=== PATIENT | male | born 1980 | race Hispanic/Latino ===

== ENCOUNTER 2019-03-03 00:13 | Emergency (ER) | payer OTHER ==
[2019-03-03] MEDS ORDERED: Ondansetron ODT 4 MG TAB ONE (00:35)
[2019-03-03] MEDS ORDERED: Aspirin Chewable 81 MG TAB ONE (00:35)
[2019-03-03 00:47] LABS: Eosinophils 2 % (0-10); Hemoglobin 15.6 g/dL (14.0-18.0); Lymphocytes 39 % (21-51); MDiff Complete? YES; Mean Corpuscular HGB CONC 34.4 g/dL (32.0-36.0); Mean Corpuscular Hemoglobin 29.1 pg (27.0-31.0); Mean Corpuscular Volume 84.6 fL (78.0-98.0); Mean Platelet Volume 7.5 fL (7.4-10.4); Monocytes 6 % (0-10); Neutrophil 42 % (42-75); Platelet Count 282 thou/uL (130-400); Reactive Lymphocytes 11 % (0-10); Red Blood Cell (RBC) Count 5.35 mill/uL (4.70-6.10); White Blood Cell (WBC) Count 8.1 thou/uL (4.8-10.8)
[2019-03-03 00:51] LABS: ALT (SGPT) 42 U/L (8-55); AST (SGOT) 23 U/L (5-34); Albumin 4.4 g/dL (3.5-5.0); Alkaline Phosphatase 81 U/L (40-150); Anion Gap 14 mmol/L (10-20); BUN (Urea Nitrogen) 16 mg/dL (8.9-20.6); Bilirubin, Total 0.4 mg/dL (0.2-1.2); CK (CPK) 65 U/L (30-200); Calc. Creatinine Clearance 0 mL/min (70-130); Calcium 9.7 mg/dL (7.8-10.44); Carbon Dioxide 23 mmol/L (22-29); Chloride 105 mmol/L (98-107); Estimated GFR-MDRD 77; Glucose 108 mg/dL (70-105); Potassium 3.8 mmol/L (3.5-5.1); Protein, Total 7.4 g/dL (6.0-8.3); Sodium 138 mmol/L (136-145)
--- NOTE | 2019-03-03 07:38 | RAD ---
FXR Chest 1 View Portable History: [Left-sided chest pain] Comparison: None. Findings: The lungs are clear. No pneumothorax or effusion. Cardiac silhouette and mediastinal contou rs are within normal limits. Impression: No acute intrathoracic abnormality.
== END 2019-03-03 01:13 | disposition home or self-care (01) ==
LOC: SCSER 00:13
DX: R07.9 Chest pain, unspecified (principal); E78.00 Pure hypercholesterolemia, unspecified
CPT/HCPCS: 71045; 80053; 82550; 84484; 85025; 93005; Q0162

== ENCOUNTER 2019-03-06 08:38 | Outpatient (CLI) | payer OTHER ==
[2019-03-06 08:55] LABS: #Eosinphils 0.2 thou/uL (0.0-0.7); #Lymphocytes 2.4 thou/uL (1.20-3.40); #Monocytes 0.5 thou/uL (0.11-0.59); #Neutrophils 3.3 thou/uL (1.40-6.50); %Basophils 0.8 % (0.0-1.0); %Eosinophils 2.4 % (0.0-10.0); %Lymphocytes 37.9 % (21.0-51.0); %Monocytes 7.2 % (0.0-10.0); %Neutrophils 51.7 % (42.0-75.0); Mean Corpuscular HGB CONC 33.3 g/dL (32.0-36.0); Mean Corpuscular Hemoglobin 28.3 pg (27.0-31.0); Mean Platelet Volume 7.7 fL (7.4-10.4); Platelet Count 267 thou/uL (130-400); RBC Distribution Width 11.9 % (11.5-14.5); Red Blood Cell (RBC) Count 5.31 mill/uL (4.70-6.10); White Blood Cell (WBC) Count 6.5 thou/uL (4.8-10.8)
[2019-03-06 09:10] LABS: Bilirubin Negative (Negative); Blood, Urine Trace (Negative); Clarity Clear (Clear); Glucose, Urine (Dipstick) Negative (Negative); Leukocyte Negative (Negative); Nitrite Negative (Negative); Protein, Urine (Dipstick) Trace mg/dL (Neg-Trace); Specific Gravity, Urine 1.015 (1.005-1.030)
[2019-03-06 09:17] LABS: ALT (SGPT) 38 U/L (8-55); AST (SGOT) 23 U/L (5-34); Albumin 4.4 g/dL (3.5-5.0); Alkaline Phosphatase 76 U/L (40-150); Anion Gap 12 mmol/L (10-20); BUN (Urea Nitrogen) 13 mg/dL (8.9-20.6); Bilirubin, Total 0.7 mg/dL (0.2-1.2); Calc. Creatinine Clearance 0 mL/min (70-130); Calcium 9.6 mg/dL (7.8-10.44); Carbon Dioxide 27 mmol/L (22-29); Chloride 105 mmol/L (98-107); Cholesterol 315 mg/dl (< 200 Desired); Estimated GFR-MDRD 86; Globulin 2.8 g/dL (2.4-3.5); Glucose 102 mg/dL (70-105); HDL Cholesterol 35 mg/dL (>60 Neg Risk); LDL Cholesterol, Calculated 216 mg/dL; Potassium 4.3 mmol/L (3.5-5.1); Protein, Total 7.2 g/dL (6.0-8.3); Sodium 140 mmol/L (136-145); Triglycerides 320 mg/dL (Less than 150)
[2019-03-06 09:49] LABS: Bacteria/HPF Rare-Few HPF (None Seen); RBC/HPF 0-3 HPF (0-3); Squamous Epithelial None Seen HPF (0-3); WBC/HPF None Seen HPF (0-3)
== END 2019-03-06 08:39 | disposition home or self-care (01) ==
LOC: SCSLAB 08:38
PROVIDERS: ATTEND Family Medicine
DX: H81.11 Benign paroxysmal vertigo, right ear (principal)
CPT/HCPCS: 36415; 80053; 80061; 81001; 84443; 85025

== ENCOUNTER 2019-08-05 07:56 | Outpatient (CLI) | payer BC, OTHER ==
--- NOTE | 2019-08-05 09:46 | MRI ---
MRI BRAIN WITH AND WITHOUT CONTRAST: INDICATION: Frequency of headaches, dizziness. FINDINGS: There is no acute territorial infarction, mass effect, midline shift, or ventriculomegaly. No intrac ranial hemorrhagic susceptibility, or evidence of significant signal abnormality of the brain parench yma. No enhancing intraaxial lesions. Sellar contents are grossly unremarkable, and there is no clarice dence of extraaxial mass. Mild mucosal thickening of paranasal sinuses. IMPRESSION: No acute intracranial abnormalities. POS: OFF
== END 2019-08-05 07:57 | disposition home or self-care (01) ==
LOC: SCSMRI 07:56
PROVIDERS: ATTEND Family Medicine
DX: R51 Headache (principal); R42 Dizziness and giddiness
CPT/HCPCS: 70553

== ENCOUNTER 2019-10-22 07:39 | Outpatient (CLI) | payer BC ==
--- NOTE | 2019-10-22 08:27 | CT ---
CT ABDOMEN AND PELVIS HISTORY: Epigastric pain. Abdominal distention. Intestinal metaplasia of gastric mucosa. Indigestion. COMPARISON: None. Procedure: Multiple contiguous axial images were obtained and a CT of the abdomen and pelvis with IV contrast. C oronal reformats were performed. FINDINGS: Lower Chest: Dependent atelectatic change. Vessels: Normal caliber aorta. Heart: Normal heart size. Abdomen: Portal vein:Patent. Gallbladder: No calcified gallstones. Normal caliber wall. Liver: within normal limits. Pancreas: within normal limits. Spleen: within normal limits. Adrenals: within normal limits. Kidneys: Symmetric enhancement. No obstructive uropathy. Peritoneum: No ascites or free air, no fluid collection. Bowel: Limited evaluation due to the lack of oral contrast administration. No evidence of bowel obstr uction. Ileocecal junction is unremarkable. Normal caliber appendix. Scattered fecal material in a nondistended, nondilated colon. Stomach: Questionable contraction versus mucosal thickening, circumferential in nature at the level o f the gastric antrum. Consider endoscopy. Mesentery and Retroperitoneum: No enlarged mesenteric or retroperitoneal lymph nodes. Abdominal Wall: within normal limits. Pelvis: Reproductive Organs: Reproductive organs are unremarkable. Pelvis: No mass, lymphadenopathy, free air or free fluid. Bladder: within normal limits. Bones: within normal limits. IMPRESSION: 1. No acute abnormality in the abdomen and pelvis. 2. Normal caliber appendix. 3. No evidence of bowel obstruction. 4. Circumferential mucosal thickening involving the gastric antrum which may be due to contraction. H owever, intraluminal mass cannot be excluded. Endoscopy is recommended. CODE T Transcribed Date/Time: 10/22/2019 8:31 AM
[2019-10-22] MEDS ORDERED: Iopamidol-370 76% 500 ML 1 ML ONE (11:34)
== END 2019-10-22 07:40 | disposition home or self-care (01) ==
LOC: BICCT 07:39
PROVIDERS: ATTEND Physician Assistant Medical
DX: K31.89 Other diseases of stomach and duodenum (principal); R14.0 Abdominal distension (gaseous); R10.13 Epigastric pain; R93.5 Abnormal findings on diagnostic imaging of other abdominal regions, including retroperitoneum
CPT/HCPCS: 74177

== ENCOUNTER 2019-10-24 09:02 | Emergency (ER) | payer BC ==
[2019-10-24] MEDS ORDERED: Ondansetron PF 4 MG/2 ML Vial ONE (09:31)
[2019-10-24 09:43] LABS: Bilirubin Negative (Negative); Blood, Urine Negative (Negative); Clarity Clear (Clear); Glucose, Urine (Dipstick) Negative (Negative); Leukocyte Negative (Negative); Nitrite Negative (Negative); Protein, Urine (Dipstick) Negative (Neg-Trace); Urobilinogen 0.2 mg/dL (Less than 2)
[2019-10-24 09:47] LABS: #Basophils 0.1 thou/uL (0.0-0.2); #Eosinphils 0.1 thou/uL (0.0-0.7); #Lymphocytes 2.3 thou/uL (1.20-3.40); #Monocytes 0.3 thou/uL (0.11-0.59); #Neutrophils 3.2 thou/uL (1.40-6.50); %Basophils 0.9 % (0.0-1.0); %Monocytes 5.5 % (0.0-10.0); %Neutrophils 53.6 % (42.0-75.0); Mean Corpuscular HGB CONC 33.3 g/dL (32.0-36.0); Mean Corpuscular Hemoglobin 28.6 pg (27.0-31.0); Mean Corpuscular Volume 85.7 fL (78.0-98.0); Mean Platelet Volume 8.6 fL (7.4-10.4); Platelet Count 250 thou/uL (130-400); RBC Distribution Width 11.9 % (11.5-14.5); Red Blood Cell (RBC) Count 5.61 mill/uL (4.70-6.10)
[2019-10-24 09:54] LABS: ALT (SGPT) 29 U/L (8-55); AST (SGOT) 21 U/L (5-34); Albumin 4.6 g/dL (3.5-5.0); Alkaline Phosphatase 74 U/L (40-110); Anion Gap 14 mmol/L (10-20); Bilirubin, Total 0.6 mg/dL (0.2-1.2); CK (CPK) 98 U/L (30-200); Calc. Creatinine Clearance 0 mL/min (70-130); Calcium 9.9 mg/dL (7.8-10.44); Carbon Dioxide 24 mmol/L (22-29); Chloride 107 mmol/L (98-107); Estimated GFR-MDRD 84; Globulin 2.7 g/dL (2.4-3.5); Glucose 117 mg/dL (70-105); Lipase 18 U/L (8-78); Protein, Total 7.3 g/dL (6.0-8.3); Sodium 141 mmol/L (136-145)
[2019-10-24 09:55] LABS: BUN (Urea Nitrogen) 14 mg/dL (8.9-20.6)
== END 2019-10-24 10:37 | disposition home or self-care (01) ==
LOC: SCSER 09:02
DX: R10.9 Unspecified abdominal pain (principal); M79.10 Myalgia, unspecified site; R10.814 Left lower quadrant abdominal tenderness; R11.0 Nausea; E78.00 Pure hypercholesterolemia, unspecified; Z87.442 Personal history of urinary calculi; Z79.899 Other long term (current) drug therapy
CPT/HCPCS: 80053; 81003; 82550; 83690; 85025; 96374; J2405

== ENCOUNTER 2019-11-09 12:19 | Outpatient (CLI) | payer BC ==
--- NOTE | 2019-11-09 12:49 | RAD ---
EXAM: 2 views of the lumbosacral spine HISTORY: Low back pain and right hip pain COMPARISON: None FINDINGS: 2 views of the lumbosacral spine shows normal height and alignment of the vertebral bodies and intervertebral discs without fracture or subluxation. A very small osteophyte projects off the superior endplate of L4. The sacroiliac joints are unremarkable. IMPRESSION: Mild degenerative changes at L3/4 without acute osseous abnormality.
== END 2019-11-09 12:20 | disposition home or self-care (01) ==
LOC: SCSRAD 12:19
PROVIDERS: ATTEND Family Medicine
DX: M54.41 Lumbago with sciatica, right side (principal); M47.816 Spondylosis without myelopathy or radiculopathy, lumbar region
CPT/HCPCS: 36415; 72100; 82550; 85652; 86140

== ENCOUNTER 2019-12-31 09:59 | Outpatient (CLI) | payer OTHER ==
--- NOTE | 2019-12-31 10:49 | MRI ---
EXAM: Lumbar spine MRI without contrast. HISTORY: Lumbar nerve root impingement, low back pain, right-sided buttock pain COMPARISON: None FINDINGS: Multiplanar, multisequence MRI examination of the lumbar spine is performed. The conus medullaris region appears unremarkable. No evidence for abnormal marrow signal. Small Schmorl's node noted involving the posterior inferior aspect of T12 and L1 without abnormal mar row signal. T12-L1 disc level: Unremarkable. L1-L2 disc level: Unremarkable. L2-L3 disc level: Unremarkable. L3-L4 disc level: Unremarkable. L4-L5 disc level: Unremarkable. L5-S1 disc level: Unremarkable. IMPRESSION: No disc herniation or significant canal, lateral recess, or foraminal stenosis. Small Schmorl's node involving the inferior aspect of L1 and T12 vertebral bodies. No abnormal marrow signal.
== END 2019-12-31 10:00 | disposition home or self-care (01) ==
LOC: SCSMRI 09:59
PROVIDERS: ATTEND Family Medicine
DX: M54.16 Radiculopathy, lumbar region (principal); R19.00 Intra-abdominal and pelvic swelling, mass and lump, unspecified site
CPT/HCPCS: 72148

== ENCOUNTER 2020-08-21 08:25 | Outpatient (CLI) | payer OTHER ==
--- NOTE | 2020-08-21 09:02 | RAD ---
XR Chest Pa Lat STANDARD HISTORY: Cough with chest discomfort and upper back pain COMPARISON: 03/03/2019 FINDINGS: The heart size is normal. The lungs are well expanded without focal areas of consolidation, pneumothorax or pleural effusions. IMPRESSION: No radiographic evidence of acute cardiopulmonary process.
[2020-08-21 11:14] LABS: ALT (SGPT) 27 U/L (8-55); AST (SGOT) 27 U/L (5-34); Albumin 4.5 g/dL (3.5-5.0); Alkaline Phosphatase 86 U/L (40-110); Anion Gap 14 mmol/L (10-20); BUN (Urea Nitrogen) 16 mg/dL (8.9-20.6); Bilirubin, Total 0.5 mg/dL (0.2-1.2); Calc. Creatinine Clearance 0 mL/min (70-130); Calcium 9.3 mg/dL (7.8-10.44); Carbon Dioxide 27 mmol/L (22-29); Cardiac Risk 7.8 (Less than 4.5); Chloride 104 mmol/L (98-107); Cholesterol 281 mg/dl (< 200 Desired); Estimated GFR-MDRD 77; Globulin 2.7 g/dL (2.4-3.5); Glucose 102 mg/dL (70-105); HDL Cholesterol 36 mg/dL (>60 Neg Risk); LDL Cholesterol, Calculated 186 mg/dL; Potassium 4.5 mmol/L (3.5-5.1); Protein, Total 7.2 g/dL (6.0-8.3); Sodium 140 mmol/L (136-145); Triglycerides 293 mg/dL (Less than 150)
== END 2020-08-21 08:26 | disposition home or self-care (01) ==
LOC: SCSRAD 08:25
PROVIDERS: ATTEND Family Medicine
DX: M54.6 Pain in thoracic spine (principal); E78.5 Hyperlipidemia, unspecified
CPT/HCPCS: 36415; 71046; 80053; 80061

== ENCOUNTER 2020-08-28 07:45 | Outpatient (CLI) | payer OTHER ==
[2020-08-29 14:57] LABS: SARS-CoV-2 MS2 Positive; SARS-CoV-2 N Gene Negative; SARS-CoV-2 S Gene Negative; SARS-CoV-2 by NAA Not Detected (NotDetected); SARS-CoV-2 orf1ab Negative
== END 2020-08-28 07:46 | disposition home or self-care (01) ==
LOC: LABBT 07:45
PROVIDERS: ATTEND Internal Medicine Gastroenterology
DX: K21.9 Gastro-esophageal reflux disease without esophagitis (principal); R13.10 Dysphagia, unspecified; Z20.828 Contact with and (suspected) exposure to other viral communicable diseases
CPT/HCPCS: 87635; U0003

== ENCOUNTER 2020-09-08 07:08 | Outpatient (CLI) | payer OTHER ==
[2020-09-09 15:21] LABS: SARS-CoV-2 MS2 Positive; SARS-CoV-2 N Gene Negative; SARS-CoV-2 S Gene Negative; SARS-CoV-2 by NAA Not Detected (NotDetected); SARS-CoV-2 orf1ab Negative
== END 2020-09-08 07:09 | disposition home or self-care (01) ==
LOC: LABBT 07:08
PROVIDERS: ATTEND Internal Medicine Gastroenterology
DX: Z20.828 Contact with and (suspected) exposure to other viral communicable diseases (principal)
CPT/HCPCS: 87635; U0003

== ENCOUNTER → 2020-09-12 | Day surgery (SDC) | payer OTHER ==
--- NOTE | 2020-10-10 18:13 | OP ---
DATE OF PROCEDURE: 09/12/2020 PROCEDURE PERFORMED: 24-hour ambulatory pH study. PREOPERATIVE DIAGNOSES: Gastroesophageal reflux disease and chest pain and odynophagia. DESCRIPTION OF PROCEDURE: The pH probe was placed transnasally into the esophagus by Isa Ortega, registered nurse. The patient returned 24 hours later and the recordings were printed out for review. FINDINGS: The pH in the proximal esophagus remained normal throughout the study. The pH at the distal probe only dropped below 4 around 6 times briefly while upright or at most a couple of minutes at a time. IMPRESSION: Normal 24-hour esophageal pH study. He does not have significant acid reflux to explain his chest pain. His DeMeester score is 0.9. This procedure was performed off proton pump inhibitor. Job ID: [id number]
--- NOTE | 2020-10-10 22:20 | OP ---
DATE OF PROCEDURE: 09/12/2020 PROCEDURE PERFORMED: High-resolution esophageal motility study. PREOPERATIVE DIAGNOSES: Chest pain and odynophagia. DESCRIPTION OF PROCEDURE: The manometry probe was placed by Isa Ortega, registered nurse. Ten wet swallows were evaluated. FINDINGS: The patient's lower esophageal sphincter contracted and relaxed appropriately. The basal pressure measures around 65 mmHg and relaxed completely with the wet swallows. He has peristaltic esophageal contraction. His wave amplitude in the distal esophagus measures 60s to 80s mmHg. He did have three failed swallows; however, dysphagia has not been a primary symptom. There has been some question of decreased sensitivity of the manometry probe with some subsequent study since then, raising the possibility that these swallows were not truly failed. Overall, however, 70% of the swallows were normal with peristaltic contractions with 3 of the 10 swallows having failed. Based on that information, he would fit [place] classification for ineffective esophageal motility. However, I would consider this overall a normal study with appropriate relaxation of the lower esophageal sphincter and normal peristaltic contractions with normal wave amplitudes. IMPRESSION: Overall normal esophageal motility study. It is possible that he does have some failed swallows with a mild ineffective esophageal motility, but his symptoms have not been dysphagia better rather chest pain. These findings do not explain the patient's chest pain. Job ID: [id number]
== END ==
LOC: ENDO/OP 07:08
PROVIDERS: ATTEND Internal Medicine Gastroenterology
DX: K21.9 Gastro-esophageal reflux disease without esophagitis (principal); K76.0 Fatty (change of) liver, not elsewhere classified
CPT/HCPCS: 91010; 91034

== ENCOUNTER 2024-12-07 14:56 | Outpatient (CLI) | payer OTHER | END 2024-12-07 14:57 | disposition home or self-care (01) | LOC: SCSRAD 14:56 | PROVIDERS: ATTEND Family Medicine | DX: M54.50 Low back pain, unspecified (principal); M47.816 Spondylosis without myelopathy or radiculopathy, lumbar region | CPT/HCPCS: 72120 ==